=== PATIENT | female | born 1990 | race Caucasian/White ===

== ENCOUNTER 2020-07-10 21:31 | Emergency (ER) | payer OTHER ==
[~2020-07-10 21:31] MED LIST: BUPRENORPHINE HC2 MG PO; NASONEX17 GM; PROVENTIL HFA 61 INH INH; PROVENTIL HFA6.7 GM INH; SYSTANE GEL EYE10 ML OU; ZYRTEC10 MG PO
[2020-07-10 22:45] LABS: HEMOGLOBIN 13.1 gm/dl (12.3-15.3); RED BLOOD COUNT 4.02 M/UL (4.00-5.10); WHITE BLOOD COUNT 18.4 K/UL (4.5-11.0)
[2020-07-10 23:04] LABS: BUN/CREATININE RATIO 19 (0-10)
[2020-07-11] MEDS ORDERED: OMNICEF 300 MG300 MG PO (00:34)
== END 2020-07-11 09:41 | disposition home or self-care (01) ==
LOC: ER1 21:31
PROVIDERS: Emergency Medicine
DX: O23.40 Unspecified infection of urinary tract in pregnancy, unspecified trimester (principal); F15.10 Other stimulant abuse, uncomplicated; O16.9 Unspecified maternal hypertension, unspecified trimester
CPT/HCPCS: 80053; 80307; 81001; 83690; 83735; 84703; 85025; 96365; 99283; G0480; J0696

== ENCOUNTER 2020-07-30 23:11 | Emergency (ER) | payer OTHER ==
[~2020-07-30 23:11] MED LIST changes: +OMNICEF 300 MG300 MG PO
[2020-07-31 03:15] LABS: HEMOGLOBIN 12.4 gm/dl (12.3-15.3); RED BLOOD COUNT 3.92 M/UL (4.00-5.10); WHITE BLOOD COUNT 12.3 K/UL (4.5-11.0)
[2020-07-31 03:59] LABS: BUN/CREATININE RATIO 17 (0-10)
[2020-07-31] MEDS ORDERED: CEPHALEXIN500 MG PO (12:17)
== END 2020-07-31 13:12 | disposition other institution (70) ==
LOC: ER1 23:11
PROVIDERS: Family Medicine
DX: T43.592A Poisoning by other antipsychotics and neuroleptics, intentional self-harm, initial encounter (principal); T40.422A Poisoning by tramadol, intentional self-harm, initial encounter; N39.0 Urinary tract infection, site not specified; Z20.822 Contact with and (suspected) exposure to COVID-19
CPT/HCPCS: 80053; 80307; 81001; 84703; 85025; 87086; 93005; 99285; U0002